=== PATIENT | female | born 1995 | race Caucasian/White ===

== ENCOUNTER 2019-01-05 08:03 | Emergency (ER) | payer SELFPAY ==
[~2019-01-05] VITALS: Ht 154.9 cm; Wt 85.5 kg
[2019-01-05 08:17] VITALS: BP 134/85
[2019-01-05] MEDS ORDERED: SULF1TAB24 PO (08:29)
--- NOTE | 2019-01-05 08:29 | PHYS DOC ---
Adult General Chief Complaint Chief Complaint: SKIN PROBLEM HPI HPI Patient is a 23 year old female who presents with complaining of skin problem of her face. 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 Patient complaining of pressure feeling in left side of her face without fever and chills, change of vision, nausea and vomiting. Review of Systems Review of Systems Constitutional: Denies fever or chills [] Eyes: Denies change in visual acuity, redness, or eye pain [] HENT: Denies nasal congestion or sore throat [] Respiratory: Denies cough or shortness of breath [] Cardiovascular: No additional information not addressed in HPI [] GI: Denies abdominal pain, nausea, vomiting, bloody stools or diarrhea [] : Denies dysuria or hematuria [] Musculoskeletal: Denies back pain or joint pain [] Integument: Denies rash, reports skin lesions [] Neurologic: Denies headache, focal weakness or sensory changes [] Endocrine: Denies polyuria or polydipsia [] All other systems were reviewed and found to be within normal limits, except as documented in this note. Allergies Allergies Allergies Coded Allergies Type Severity Reaction Last Updated Verified Penicillins Allergy Severe Rash 01/05/19 Yes shellfish derived Allergy Severe Rash 01/05/19 Yes Physical Exam Physical Exam Constitutional: Well developed, well nourished, mild distress, non-toxic appearance. [] HENT: Normocephalic, atraumatic. 1x1 cm area of cellulitis in the left cheek without sign of abscess Eyes: PERRLA, EOMI, conjunctiva normal, no discharge. [] Neck: Normal range of motion, no tenderness, supple, no stridor. [] Cardiovascular:Heart rate regular rhythm, no murmur [] Lungs & Thorax: Bilateral breath sounds clear to auscultation [] Psychologic: Affect normal, judgement normal, mood normal. [] EKG EKG [] Radiology/Procedures Radiology/Procedures [] Course & Med Decision Making Course & Med Decision Making Evaluation of patient in ER showed 23-year-old female patient with a facial cellulitis and history of previous MRSA. Plan discharge patient home with prescription of Bactrim and instruction to apply warm compress on her face and follow up with her primary care physician or ER if not getting better. Dragon Disclaimer Dragon Disclaimer This electronic medical record was generated, in whole or in part, using a voice recognition dictation system. Departure Departure Impression: Primary Impression: Facial cellulitis Disposition: HOME, SELF-CARE (at [phone]) Condition: STABLE Referrals: NO PCP (PCP) Patient Instructions: Cellulitis, Community-Associated MRSA Additional Instructions: Put warm towel on your face Follow-up with your primary care physician in 2-3 days Return to ER if not getting better Scripts Sulfamethoxazole/Trimethoprim (BACTRIM DS TABLET) 1 Each Tablet 1 TAB PO BID for infection, #14 TAB Prov: DIA ELMORE MD 01/05/19 DIA ELMORE MD Jan 05, 2019 08:29
== END 2019-01-05 08:44 | disposition home or self-care (01) ==
LOC: ER 08:03
DX: L03.211 Cellulitis of face (principal); Z86.14 Personal history of Methicillin resistant Staphylococcus aureus infection; Z88.0 Allergy status to penicillin; Z91.013 Allergy to seafood
CPT/HCPCS: 99283

== ENCOUNTER 2019-02-09 17:01 | Emergency (ER) | payer SELFPAY ==
[~2019-02-09] VITALS: Ht 157.5 cm; Wt 83.0 kg
[~2019-02-09 17:01] MED LIST: SULF1TAB24 PO
[2019-02-09 17:10] VITALS: BP 160/81
[2019-02-09] MEDS ORDERED: AZIT250T6 PO (17:18)
--- NOTE | 2019-02-09 17:23 | PHYS DOC ---
Past Medical History Past Medical History: Endometriosis, Other Additional Past Medical Histor: PCOS,IBS,RSD (JACKY SHINE APRN) Past Surgical History: Cholecystectomy, Other Additional Past Surgical Histo: RIGHT KNEEX'S2,LEFT SHOULDER, (JACKY SHINE APRN) Alcohol Use: Occasionally Drug Use: None (JACKY SHINE APRN) Attending Signature I have participated in the care of this patient and I have reviewed and agree with all pertinent clinical information above including history, exam, and recommendations. (MATT ADAM MD) Adult General Chief Complaint Chief Complaint: Congestion HPI HPI Patient is a 23 year old female who presents with 1 week of nasal congestion, chest congestion with productive cough of yellow sputum. She states she has been using Mucinex and cold medications [id number]. Patient is a smoker. (JACKY SHINE APRN) Review of Systems Review of Systems HENT: nasal congestion or denies sore throat [] Respiratory: cough or shortness of breath [] All other systems were reviewed and found to be within normal limits, except as documented in this note. (JACKY SHINE APRN) Allergies Allergies Allergies Coded Allergies Type Severity Reaction Last Updated Verified Penicillins Allergy Severe Rash 01/05/19 Yes shellfish derived Allergy Severe Rash 01/05/19 Yes (MATT ADAM MD) Physical Exam Physical Exam Constitutional: Well developed, well nourished, no acute distress, non-toxic appearance. [] HENT: Normocephalic, atraumatic, bilateral external ears normal, oropharynx moist, no oral exudates, nose normal. Frontal and maxillary Sinus tenderness. [] Eyes: PERRLA, EOMI, conjunctiva normal, no discharge. [] Neck: Normal range of motion, no tenderness, supple, no stridor. [] Cardiovascular:Heart rate regular rhythm, no murmur [] Lungs & Thorax: Bilateral breath sounds clear to auscultation [] Skin: Warm, dry, no erythema, no rash. [] Neurologic: Alert and oriented X 3, normal motor function, normal sensory function, no focal deficits noted. [] Psychologic: Affect normal, judgement normal, mood normal. [] (JACKY SHINE APRN) Current Patient Data Vital Signs Vital Signs Date Time Temp Pulse Resp B/P (MAP) Pulse Ox O2 Delivery O2 Flow Rate FiO2 02/09/19 17:10 98.5 86 16 160/81 (107) 98 Room Air 98.5 (MATT ADAM MD) EKG EKG [] (JACKY SHINE APRN) Radiology/Procedures Radiology/Procedures [] (JACKY SHINE APRN) Course & Med Decision Making Course & Med Decision Making Alert and oriented. Speaks in full clear sentences. Skin pink warm and dry. Patient has maxillary and frontal sinus tenderness with palpation. Lungs are clear to auscultation all lobes. Afebrile. Patient denies abdominal pain, nausea, vomiting, dysuria, dizziness, changes, numbness or tingling, diarrhea. Been having a off and on frontal lobe headache. [] (JACKY SHINE APRN) Dragon Disclaimer Dragon Disclaimer This electronic medical record was generated, in whole or in part, using a voice recognition dictation system. (JACKY SHINE APRN) Departure Departure Impression: Primary Impression: Sinusitis Disposition: HOME, SELF-CARE Condition: STABLE Referrals: NO PCP (PCP) Patient Instructions: Sinusitis Additional Instructions: Follow up with a primary care provider. Try to stop smoking as soon as possible. Scripts Azithromycin (AZITHROMYCIN TABLET) 250 Mg Tablet 1 PKG PO UD for 5 Days, #6 TAB 0 Refills 2 the first day followed by 1 for days 2-5 Prov: JACKY SHINE APRN 02/09/19 Problem Qualifiers Primary Impression: Sinusitis Sinusitis location: maxillary Chronicity: acute Recurrence: non- recurrent Qualified Codes: J01.00 - Acute maxillary sinusitis, unspecified JACKY SHINE APRN Feb 09, 2019 17:22 MATT ADAM MD Feb 14, 2019 18:21
== END 2019-02-09 17:45 | disposition home or self-care (01) ==
LOC: ER 17:01
DX: J01.00 Acute maxillary sinusitis, unspecified (principal); F17.200 Nicotine dependence, unspecified, uncomplicated; Z91.013 Allergy to seafood; Z88.0 Allergy status to penicillin
CPT/HCPCS: 99283

== ENCOUNTER 2019-04-20 05:57 | Emergency (ER) | payer OTHER ==
[~2019-04-20] VITALS: Ht 157.5 cm; Wt 83.0 kg
[~2019-04-20 05:57] MED LIST changes: +AZIT250T6 PO
[2019-04-20 06:01] VITALS: BP 173/69
[2019-04-20] MEDS ORDERED: PRED20TA PO (06:13)
[2019-04-20] MEDS ORDERED: AZIT250T PO (06:13)
[2019-04-20] MEDS ORDERED: HYDR-3164 PO (06:16)
--- NOTE | 2019-04-20 06:16 | PHYS DOC ---
Past Medical History Past Medical History: Endometriosis, Other Additional Past Medical Histor: PCOS,IBS,RSD Past Surgical History: Cholecystectomy, Tonsillectomy, Other Additional Past Surgical Histo: RIGHT KNEEX'S2,LEFT SHOULDER, Smoking: Cigarettes Alcohol Use: Occasionally Drug Use: None Adult General Chief Complaint Chief Complaint: EARACHE/EAR PAIN HPI HPI Patient is a 24 year old female with PMH of Endometriosis and PCOS who presents with left ear pain that began after blowing her nose forcefully this morning. She states she's had a runny nose, cough, and sinus congestion for the last four days. She describes her pain as sharp, non-radiating, and brought on by any physical contact with her ear. She also has some hearing loss in the involved ear. She describes feeling dizzy initially, but is not now. She denies any nausea, vomiting, fever, or chills. She has not taken anything for the pain yet. She has been taking Dayquil for her cold with mild relief. Review of Systems Review of Systems Constitutional: Denies fever or chills Eyes: Denies redness or eye pain HENT: Reports nasal congestion. Left ear pain with muffled hearing. Respiratory: Reports dry cough. Denies shortness of breath Cardiovascular: Denies chest pain or palpitations GI: Denies abdominal pain, nausea, or vomiting : Denies dysuria or hematuria Musculoskeletal: Denies back pain or joint pain Integument: Denies rash or skin lesions Neurologic: Reports headache, Denies focal weakness or sensory changes Complete systems were reviewed and found to be within normal limits, except as documented in this note. Current Medications Current Medications Current Medications Medications (Trade) Dose Ordered Sig/Alia Start Time Stop Time Status Last Admin Dose Admin Acetaminophen/ Hydrocodone Bitart (Lortab 5/325) 1 tab 1X ONCE 04/20/19 07:00 04/20/19 07:01 DC 04/20/19 07:09 1 TAB Dexamethasone (Decadron) 10 mg 1X ONCE 04/20/19 06:30 04/20/19 06:31 DC 04/20/19 07:08 10 MG Ketorolac Tromethamine (Toradol 30mg Vial) 30 mg 1X ONCE 04/20/19 06:30 04/20/19 06:31 DC 04/20/19 07:07 30 MG Allergies Allergies Allergies Coded Allergies Type Severity Reaction Last Updated Verified Penicillins Allergy Severe Rash 9/21/19 Yes shellfish derived Allergy Severe Rash 01/05/19 Yes Physical Exam Physical Exam Constitutional: Well developed, well nourished, no acute distress, non-toxic appearance HENT: Normocephalic, atraumatic, oropharynx moist. Left TM has localized erythema. No overt signs of rupture or infection. Eyes: conjunctiva normal, no discharge Cardiovascular: Heart rate normal, regular rhythm Lungs & Thorax: Bilateral breath sounds clear to auscultation, no wheezing Skin: Warm, dry, no erythema, no rash Neurologic: Alert and oriented X 3, normal motor function, normal sensory function, no focal deficits noted Psychologic: Affect normal, judgement normal, mood normal Current Patient Data Vital Signs Vital Signs Date Time Temp Pulse Resp B/P (MAP) Pulse Ox O2 Delivery O2 Flow Rate FiO2 04/20/19 07:09 16 98 04/20/19 06:01 98.2 109 173/69 (103) Room Air 98.2 EKG EKG [] Radiology/Procedures Radiology/Procedures [] Course & Med Decision Making Course & Med Decision Making Patient is a 24-year-old female with past medical history of endometriosis and PCOS who presents with left ear pain after sneezing forcefully this morning. The tympanic membrane does not show any signs of clear rupture or infection at this time. However, there is a small portion of erythema over a small part of the membrane. This potentially indicates a small tear in the membrane. Patient was advised to take tympanic membrane rupture precautions. She was given a shot of Toradol 30 mg IM, 1 dose of 5-325mg Hydrocone, and one dose of dexamethasone 10mg in the emergency department. In addition, she was prescribed hydrocodone to help with continued pain and discomfort. Azithromycin was prescribed with the intention of being used only if symptoms worsen over the next 48 hours. Patient stable for discharge with outpatient follow-up with PCP. Discussed findings and plan with patient, who acknowledges understanding and agreement. Dragon Disclaimer Dragon Disclaimer This electronic medical record was generated, in whole or in part, using a voice recognition dictation system. Departure Departure Impression: Primary Impression: Sinusitis Additional Impression: Otalgia of left ear Disposition: HOME, SELF-CARE Condition: STABLE Referrals: NO PCP (PCP) BERYL MARINO MD Patient Instructions: Eardrum Perforation, [id number], Otalgia-Brief, Sinusitis, [id number] Additional Instructions: Hold antibiotics for 48 hours. If symptoms worsen or for fever > 100.3 F after 48 hours then start antibiotics as prescribed. Scripts Hydrocodone/Apap 5-325 (NORCO 5-325 TABLET) 1 Each Tablet 0.5-1 TAB PO PRN Q6HRS PRN for PAIN, #10 TAB 0 Refills Prov: RENÉ MARTÍNEZ DO 04/20/19 Azithromycin (ZITHROMAX) 250 Mg Tablet 1 PKG PO UD, #6 TAB Take 2 tablets on day 1 and then 1 tablet each day for the next 4 days as directed Prov: RENÉ MARTÍNEZ DO 04/20/19 Prednisone (PREDNISONE) 20 Mg Tablet 2 TAB PO DAILY, #8 TAB Start this prescription tomorrow, Monday04/21/19 Prov: RENÉ MARTÍNEZ DO 04/20/19 Problem Qualifiers Primary Impression: Sinusitis Sinusitis location: unspecified location Chronicity: acute Recurrence: not specified as recurrent Qualified Codes: J01.90 - Acute sinusitis, unspecified RENÉ MARTÍNEZ DO Apr 20, 2019 06:16
[2019-04-20] MEDS: KETOROLAC 30 MG/ML VIAL. IM ONE (07:07)
[2019-04-20] MEDS: DEXAMETHASONE 4 MG TABLET PO ONE (07:08)
[2019-04-20] MEDS: HYDROcodone/APAP 5/325MG 1 TAB TABLET PO ONE (07:09)
== END 2019-04-20 07:12 | disposition home or self-care (01) ==
LOC: ER 05:57
DX: J01.90 Acute sinusitis, unspecified (principal); H92.02 Otalgia, left ear; K58.9 Irritable bowel syndrome, unspecified; E28.2 Polycystic ovarian syndrome; F17.210 Nicotine dependence, cigarettes, uncomplicated; Z91.041 Radiographic dye allergy status; Z88.0 Allergy status to penicillin; Z91.013 Allergy to seafood
CPT/HCPCS: 96372; 99283; J1885; J8540; 99284

== ENCOUNTER 2019-06-18 18:51 | Emergency (ER) | payer OTHER ==
[~2019-06-18] VITALS: Ht 154.9 cm; Wt 78.0 kg
[~2019-06-18 18:51] MED LIST changes: +AZIT250T PO; +HYDR-3164 PO; +PRED20TA PO
[2019-06-18 19:35] VITALS: BP 136/100
[2019-06-18] MEDS: ACETAMINOPHEN 325 MG TABLET. PO ONE (19:59)
[2019-06-18] MEDS: BENZONATATE 100 MG CAPSULE. PO ONE (19:59)
--- NOTE | 2019-06-18 20:02 | PHYS DOC ---
Past Medical History Past Medical History: Endometriosis, Other Additional Past Medical Histor: PCOS,IBS,RSD (GUSTAVO LÓPEZ) Past Surgical History: Cholecystectomy, Tonsillectomy, Other Additional Past Surgical Histo: RIGHT KNEE, LEFT SHOULDER,adenoidectomy,tongue "clipped" (GUSTAVO LÓPEZ) Smoking Status: Current Every Day Smoker Additional Information: 1/2 ppd Alcohol Use: Occasionally Drug Use: None (GUSTAVO LÓPEZ) Attending Signature I have participated in the care of this patient and I have reviewed and agree with all pertinent clinical information above including history, exam, and recommendations. (MATT ADAM MD) Adult General Chief Complaint Chief Complaint: FLU SYMPTOM HPI HPI Patient is a 24 year old F who is here with 24 hours of cough, congestion and body aches. She has been exposed to her friend and coworkers who have tested positive for Influenza A. She has a history of exercise induced asthma. She took Ibuprofen last early this morning. (GUSTAVO LÓPEZ) Review of Systems Review of Systems Constitutional: Reports chills and fever. HENT: Reports nasal congestion, sore throat and L ear pain. Respiratory: Reports cough. Denies shortness of breath Cardiovascular: Denies chest pain. GI: Denies abdominal pain, nausea, vomiting, bloody stools or diarrhea : Denies dysuria or hematuria Musculoskeletal: Denies back pain. Reports body aches. Integument: Denies rash or skin lesions Neurologic: Denies headache, focal weakness or sensory changes All other systems were reviewed and found to be within normal limits, except as documented in this note. (GUSTAVO LÓPEZ) Current Medications Current Medications Current Medications Medications (Trade) Dose Ordered Sig/Alia Start Time Stop Time Status Last Admin Dose Admin Acetaminophen (Tylenol) 650 mg 1X ONCE 06/18/19 20:00 06/18/19 20:01 DC 06/18/19 19:59 650 MG Albuterol/ Ipratropium (Duoneb) 3 ml 1X ONCE 06/18/19 20:00 06/18/19 20:01 DC 06/18/19 20:05 3 ML Benzonatate (Tessalon Perle) 100 mg 1X ONCE 06/18/19 20:00 06/18/19 20:01 DC 06/18/19 19:59 100 MG Ondansetron HCl (Zofran Odt) 4 mg 1X ONCE 06/18/19 20:15 06/18/19 20:16 DC 06/18/19 20:15 4 MG (MATT ADAM MD) Allergies Allergies Allergies Coded Allergies Type Severity Reaction Last Updated Verified Penicillins Allergy Severe throat swelling 06/18/19 Yes shellfish derived Allergy Severe hives 06/18/19 Yes (MATT ADAM MD) Physical Exam Physical Exam Constitutional: Well developed, well nourished, no acute distress, non-toxic appearance. HENT: Normocephalic, atraumatic, oropharynx erythema, no oral exudates, nose normal. L ear dull, mild erythema. Neck: Normal range of motion, no tenderness, supple, no stridor. Cardiovascular:Heart rate regular rhythm, no murmur Lungs & Thorax: Bilateral breath sounds clear to auscultation. Hard cough noted. Abdomen: Bowel sounds normal, soft, no tenderness, no masses, no pulsatile masses. Skin: Warm, dry, no erythema, no rash. Back: No tenderness, no CVA tenderness. Extremities: No tenderness, no cyanosis, no clubbing, ROM intact, no edema. Neurologic: Alert and oriented X 3, normal motor function, normal sensory func tion, no focal deficits noted. Psychologic: Affect normal, judgement normal, mood normal. (GUSTAVO LÓPEZ) Current Patient Data Vital Signs Vital Signs Date Time Temp Pulse Resp B/P (MAP) Pulse Ox O2 Delivery O2 Flow Rate FiO2 06/18/19 20:06 98 Room Air 06/18/19 19:35 98.1 100 16 136/100 (112) 98.1 (MATT ADAM MD) Lab Values Laboratory Tests Test 06/18/19 19:40 Influenza Type A Antigen Negative (NEGATIVE) Influenza Type B Antigen Negative (NEGATIVE) (MATT ADAM MD) Lab Values Laboratory Tests Test 06/18/19 19:40 Influenza Type A Antigen Negative (NEGATIVE) Influenza Type B Antigen Negative (NEGATIVE) (GUSTAVO LÓPEZ) EKG EKG [] (GUSTAVO LÓPEZ) Radiology/Procedures Radiology/Procedures CXR: neg (GUSTAVO LÓPEZ) Course & Med Decision Making Course & Med Decision Making Pt's flu swabs are negative but still suspect influenza with known exposure and classic flu like symptoms. She is within the 72 hour window and discussed risk/benefits of Tamiflu and will prescribe and give her the option. Discussed rest and fever control. Will cover with Proair and cough syrup to help with hard cough. Pt to return with any worsening symptoms. (GUSTAVO LÓPEZ) Dragon Disclaimer Dragon Disclaimer This electronic medical record was generated, in whole or in part, using a voice recognition dictation system. (GUSTAVO LÓPEZ) Departure Departure Impression: Primary Impression: Bronchitis Additional Impression: Flu-like symptoms Disposition: HOME, SELF-CARE Condition: IMPROVED Referrals: NO PCP (PCP) Patient Instructions: Acute Bronchitis, Bila-[id number]-Utbr, Viral Syndrome Additional Instructions: Rest, push fluids, alternate tylenol and ibuprofen for fever control. Follow up with PCP or return to ER if symptoms worsen. Scripts Guaifenesin/Codeine Phosphate (Codeine-Guaifen 10-100 mg/5 ml) 120 Ml Liquid 10 ML PO PRN Q4HRS PRN for cough and congestion MDD 60 Milliliter(s) for 4 Days, #240 ML 0 Refills Prov: GUSTAVO LÓPEZ 06/18/19 Albuterol Sulfate (PROAIR HFA INHALER) 8.5 Gm Hfa.aer.ad 2 PUFF IH PRN Q4-6HRS PRN for wheezing for 21 Days, #1 INHALER 0 Refills Prov: GUSTAVO LÓPEZ 06/18/19 Oseltamivir Phosphate (TAMIFLU) 75 Mg Capsule 1 CAP PO BID, #10 CAP Prov: GUSTAVO LÓPEZ 06/18/19 Problem Qualifiers GUSTAVO LÓPEZ Jun 18, 2019 20:02 MATT ADAM MD Jun 18, 2019 22:07
[2019-06-18] MEDS: IPRATRPIUM/ALBUTEROL 0.5/2.5MG 3 ML NEBU. NEB ONE (20:05)
[2019-06-18] MEDS: ONDANSETRON ODT 4 MG TAB.RAPDIS. PO ONE (20:15)
[2019-06-18 20:39] LABS: INFLUENZA A PATIENT NEGATIVE (NEGATIVE); INFLUENZA B PATIENT NEGATIVE (NEGATIVE)
--- NOTE | 2019-06-18 20:59 | RAD ---
CHEST PA LATERAL Technique: PA and lateral views of the chest were obtained. Clinical History: Comparison: None. Findings: The heart and pulmonary vasculature appear within normal limits. The lungs are clear. The pleural margins are clear. Impression: No acute chest process is seen. Electronically signed by: Sebas Duffy III, MD (06/18/2019 8:56 PM) [id number]
[2019-06-18] MEDS ORDERED: ALBU2.5V8 IH (21:06)
[2019-06-18] MEDS ORDERED: GUAI120L35 PO (21:06)
[2019-06-18] MEDS ORDERED: OSEL75CA PO (21:06)
== END 2019-06-18 21:05 | disposition home or self-care (01) ==
LOC: ER 18:51
DX: J40 Bronchitis, not specified as acute or chronic (principal); R05 Cough; R09.81 Nasal congestion; M79.10 Myalgia, unspecified site; H92.02 Otalgia, left ear; K58.9 Irritable bowel syndrome, unspecified; F17.200 Nicotine dependence, unspecified, uncomplicated; Z88.0 Allergy status to penicillin; Z91.013 Allergy to seafood
CPT/HCPCS: 71046; 87804; 94640; 99284-25; Q0162

== ENCOUNTER 2020-08-21 14:44 | Emergency (ER) | payer OTHER ==
[~2020-08-21] VITALS: Ht 154.9 cm; Wt 75.0 kg
[~2020-08-21 14:44] MED LIST changes: +ALBU2.5V8 IH; +GUAI120L35 PO; +OSEL75CA PO
[2020-08-21 15:30] VITALS: BP 125/75
--- NOTE | 2020-08-21 16:27 | RAD ---
XR FOOT_LEFT 3 VIEWS 08/21/2020 4:19 PM INDICATION: History of prior surgery with sensation of screw coming out COMPARISON: None available. TECHNIQUE: 3 views of the left foot are provided. FINDINGS/ IMPRESSION: 1. Partially threaded screw identified within the navicular bone medially. No component identified wi thin the subcutaneous soft tissues. There may be mild medial soft tissue swelling. No acute fracture or dislocation. Bone mineralization is within normal limits. Joint spaces are maintained. Electronically signed by: Izabel Hernandez MD (08/21/2020 4:25 PM) [id number]
--- NOTE | 2020-08-21 16:47 | ED.ADGEN ---
Past Medical History Past Medical History: No Pertinent History Additional Past Medical Histor: PCOS,IBS,RSD Past Surgical History: Cholecystectomy, Tonsillectomy Additional Past Surgical Histo: L-FOOT, ADNOIDS, WISDOM TEETH, BOTH KNEES ORTHOSCOPY, L-SHOULDER, PCOS GABRIELA Smoking Status: Current Every Day Smoker Alcohol Use: Rarely Drug Use: None General Adult EDM: Chief Complaint: LOWER EXT PAIN HPI: HPI: Patient is a 25 year old urgency department with concerns of a screw coming out of her left foot of her previous navicular surgery site. Patient denies any new injury or trauma to the foot. She states that she felt a bump on her foot that feels like a screw 2 days ago and it has continued to bother her. She denies any bleeding or drainage from her foot. Patient currently rates her pain a 7 out of 10 on pain scale and describes it as aching sensation, she denies any alleviating factors, the pain increases with palpation and movement. Review of Systems: Review of Systems: Complete ROS is negative unless otherwise noted in HPI. Allergies: Allergies: Allergies Coded Allergies Type Severity Reaction Last Updated Verified Penicillins Allergy Severe throat swelling 06/18/19 Yes shellfish derived Allergy Severe hives 06/18/19 Yes Physical Exam: PE: See Above Constitutional: Well developed, well nourished, no acute distress, non-toxic appearance. [] HENT: Normocephalic, atraumatic, bilateral external ears normal, nose normal. [] Eyes: PERRLA, EOMI, conjunctiva normal, no discharge. [] Neck: Normal range of motion, no stridor. [] Cardiovascular:Heart rate regular rhythm Lungs & Thorax: Respirations even and unlabored, no retractions, no respiratory distress Skin: Warm, dry, no erythema, no rash. [] Extremities: Left foot: Medial tenderness to palpation over the navicular region, no bruising, no crepitus, no tenting of the skin, palpable knot in the area of tenderness, 2+ pedal pulse, no cyanosis, ROM intact, no edema. [] Neurologic: Alert and oriented X 3, no focal deficits noted. [] Psychologic: Affect normal, judgement normal, mood normal. [] Current Patient Data: Vital Signs: Vital Signs Date Time Temp Pulse Resp B/P (MAP) Pulse Ox O2 Delivery O2 Flow Rate FiO2 08/21/20 15:30 98.6 94 16 125/75 (92) 98 Room Air 98.6 EKG: EKG: [] Heart Score: C/O Chest Pain: No Risk Scores: Score 0 - 3: 2.5% MACE over next 6 weeks - Discharge Home Score 4 - 6: 20.3% MACE over next 6 weeks - Admit for Clinical Observation Score 7 - 10: 72.7% MACE over next 6 weeks - Early Invasive Strategies Radiology/Procedures: Radiology/Procedures: PROCEDURE: FOOT LEFT 3V XR FOOT_LEFT 3 VIEWS 08/21/2020 4:19 PM INDICATION: History of prior surgery with sensation of screw coming out COMPARISON: None available. TECHNIQUE: 3 views of the left foot are provided. FINDINGS/ IMPRESSION: 1. Partially threaded screw identified within the navicular bone medially. No component identified within the subcutaneous soft tissues. There may be mild medial soft tissue swelling. No acute fracture or dislocation. Bone mineralization is within normal limits. Joint spaces are maintained. Electronically signed by: Izabel Hernandez MD (08/21/2020 4:25 PM) [id number] Course & Med Decision Making: Course & Med Decision Making Pertinent Labs and Imaging studies reviewed. (See chart for details) 1435- I spoke with Dr. Ospina about the patient in the ER and concerns of surgical hardware coming out. Per Dr. Ospina pt needs to f/u with her surgeon, may take Tylenol or Ibuprofen as needed for pain. [] Dragon Disclaimer: Dragon Disclaimer: This electronic medical record was generated, in whole or in part, using a voice recognition dictation system. Departure Departure Impression: Primary Impression: Left foot pain Disposition: 01 HOME / SELF CARE / HOMELESS Condition: STABLE Referrals: NO PCP (PCP) Patient Instructions: Medical Screening Exam Additional Instructions: Follow up with your foot surgeon for further evaluation and treatment. You may take Tylenol or Ibuprofen as needed for pain. Return to the ER if symptoms worsen. LORI CONNOR [employer] August 21, 2020 16:47
== END 2020-08-21 17:00 | disposition home or self-care (01) ==
LOC: ER 14:44
DX: M79.672 Pain in left foot (principal); F17.200 Nicotine dependence, unspecified, uncomplicated; Z88.0 Allergy status to penicillin; Z91.013 Allergy to seafood
CPT/HCPCS: 73630; 99283

== ENCOUNTER 2021-07-07 14:04 | Emergency (ER) | payer OTHER ==
[~2021-07-07] VITALS: Ht 154.9 cm; Wt 65.0 kg
[2021-07-07] MEDS ORDERED: ONDANSETRON PF 4 MG/2 ML VIAL. IVP ONE (15:30)
[2021-07-07] MEDS ORDERED: IV NORMAL SALINE 1000ML BAG 1,000 ML IV ONE (15:30)
--- NOTE | 2021-07-07 15:38 | PHYS DOC ---
Past Medical History Past Medical History: No Pertinent History Additional Past Medical Histor: PCOS,IBS,RSD Past Surgical History: Cholecystectomy, Tonsillectomy Additional Past Surgical Histo: L-FOOT, ADNOIDS, WISDOM TEETH, BOTH KNEES ORTHOSCOPY, L-SHOULDER, PCOS GABRIELA Smoking Status: Current Every Day Smoker Alcohol Use: Rarely Drug Use: None General Adult EDM: Chief Complaint: MULTIPLE COMPLAINTS HPI: HPI: Patient is a 26-year-old female presents to emergency department complaining of nausea vomiting diarrhea since Monday at 2 AM. Patient reports she does not think she ate spoiled or bad food as her roommate that ate the same food at nigh t did not have the same symptoms, currently denies any thoughts of vomiting today, reports she did have 4 small loose brown bowel movements that she describes as diarrhea, denies seeing blood in her vomitus or her stool. Patient denies increased thirst or increased urination, denies urinary pressure urinary burning, hematuria or other dysuria, denies rashes to her vagina, denies vaginal discharge or STI concerns. Reports she is currently on her menstrual cycle. Patient denies taking medications at home, states she sees primary care through telemedicine who recommended she come to the emergency department for dehydration. Patient is asking for a work excuse. Patient denies other physical complaints or physical concerns. Review of Systems: Review of Systems: 14 body systems of review of systems have been reviewed. See HPI for pertinent positives and negative responses, otherwise all other systems are negative, nonpertinent or noncontributory. Constitutional: Negative except as outlined in HPI above. Skin: Negative except as outlined in HPI above. Eyes: Negative except as outlined in HPI above. HENT: Negative except as outlined in HPI above. Respiratory: Negative except as outlined in HPI above. Cardiovascular: Negative except as outlined in HPI above. GI: Negative except as outlined in HPI above. : Negative except as outlined in HPI above. Musculoskeletal: Negative except as outlined in HPI above. Integument: Negative except as outlined in HPI above. Neurologic: Negative except as outlined in HPI above. Endocrine: Negative except as outlined in HPI above. Lymphatic: Negative except as outlined in HPI above. Psychiatric: Negative except as outlined in HPI above. Heart Score: C/O Chest Pain: No Risk Factors: Risk Factors: DM, Current or recent (<one month) smoker, HTN, HLP, family history of CAD, obesity. Risk Scores: Score 0 - 3: 2.5% MACE over next 6 weeks - Discharge Home Score 4 - 6: 20.3% MACE over next 6 weeks - Admit for Clinical Observation Score 7 - 10: 72.7% MACE over next 6 weeks - Early Invasive Strategies Allergies: Allergies: Allergies Coded Allergies Type Severity Reaction Last Updated Verified Penicillins Allergy Severe throat swelling 06/18/19 Yes shellfish derived Allergy Severe hives 06/18/19 Yes Physical Exam: PE: Constitutional: Well developed, well nourished, no acute distress, non-toxic appearance. 26-year-old female in no apparent distress. HENT: Normocephalic, atraumatic. Eyes: Conjunctiva normal, no discharge. Neck: Normal range of motion, no stridor. Cardiovascular: No cyanosis appreciated, distal cap refill less than 2 seconds. Lungs & Thorax: Patient is in no respiratory distress, no audible adventitious lung sounds appreciated. Abdomen: Nontender, no abnormalities noted. Skin: Warm, dry, no erythema, no rash. Back: No tenderness, no deformities. Extremities: No tenderness, no cyanosis, no clubbing, ROM intact, no edema. Neurologic: Alert and oriented X 3, normal motor function, normal sensory function, no focal deficits noted. Psychologic: Affect normal, judgement normal, mood normal. Current Patient Data: Labs: Laboratory Tests Test 07/07/21 14:44 POC Urine HCG, Qualitative Hcg negative (Negative) Vital Signs: Vital Signs Date Time Temp Pulse Resp B/P (MAP) Pulse Ox O2 Delivery O2 Flow Rate FiO2 07/07/21 14:38 98.4 78 16 149/96 (113) 98 98.4 EKG: EKG: [] Radiology/Procedures: Radiology/Procedures: [] Course & Med Decision Making: Course & Med Decision Making Pertinent Labs and Imaging studies reviewed. (See chart for details) 26-year-old female, vital signs reviewed, presents emergency department concerning nausea vomiting diarrhea for the past 3 days. Patient's physical examination is unremarkable, the patient's oral mucosa was moist. Will order urinalysis assay, urine test, 1 L normal saline, 4 mg Zofran, 30 mg Toradol, CBC, CMP, lipase. Will reevaluate after period of time. After period of time, patient reports she feels much better now, labs are unremarkable except for potassium slightly low at 3.3, will give potassium supplement prior to discharge. Discussed findings with patient, strict follow- up with primary care soon, return to ER precautions and concerns were reviewed, patient gave verbal understanding of and is amenable to ED discharge planning. Discussed with the patient all findings and diagnostic testing as well as the need to follow-up with their primary care provider for further evaluation and treatment or return to the ED if any new or worsening symptoms. Strict return precautions were also discussed at length, the patient voiced understanding and agreement with the discharge planning. The patient was nontoxic in appearance, in no apparent distress, and hemodynamically stable at the time of disposition. Dragon Disclaimer: Scentbird Disclaimer: This electronic medical record was generated, in whole or in part, using a voice recognition dictation system. Departure Departure Impression: Primary Impression: Nausea vomiting and diarrhea Disposition: HOME / SELF CARE / HOMELESS Condition: GOOD Referrals: UNKNOWN PCP NAME (PCP) Patient Instructions: Diarrhea, Nausea and Vomiting Additional Instructions: You were seen today in the emergency department for nausea vomiting diarrhea since Monday. Your symptoms seem to have been resolving prior to arrival to the ER today as you had not experienced any vomiting today. You were given IV normal saline along with a nausea and pain medication in the IV. This seemed to help per your statement, your labs did not show any concerning findings other than a decreased potassium level which can be typical after experiencing bouts of nausea and diarrhea. You were given a potassium supplement today in the emergency department, you can keep your potassium levels within normal limits by eating potassium rich foods and a well-balanced diet. Please choose a primary care physician to follow-up with, I have attached a list to this document. Thank you for visiting our Emergency Department. It was a pleasure taking care of you today in the emergency department and we appreciate you trusting us with your care. If any additional problems come up don't hesitate to return to visit us. Please follow up with your primary care provider so they can plan additional care if needed and know about the problem that you had. If symptoms worsen come back to the Emergency Department. Any concerning symptoms that start such as chest pain, shortness of air, weakness or numbness on one side of the body, running high fevers or any other concerning symptoms return to the ER. [facility] [address] [place] [address] [facility] [address] [place] [address] [facility] [address] [place] [address] [facility] [address] [place] [address] [facility] [address] [place] [address] [facility] [address] [place] [address] [facility] [address] [place] [address] [facility] [address] [place] [address] [facility] [address] [place] [address] [facility] [address] [place] [address] RENÉ EDWARDS APRN Jul 07, 2021 15:38
[2021-07-07 15:44] LABS: BASO % 1 % (0-3); EOS # 0.2 x10^3/uL (0.0-0.7); EOS % 3 % (0-3); HEMATOCRIT 43.7 % (36.0-47.0); HEMOGLOBIN 15.1 g/dL (12.0-15.5); LYMPH # 1.9 x10^3/uL (1.0-4.8); LYMPH % 35 % (24-48); MEAN CORPUSCULAR HEMOGLOBIN 29 pg (25-35); MEAN CORPUSCULAR HGB CONC 35 g/dL (31-37); MEAN CORPUSCULAR VOLUME 84 fL (79-100); MONO # 0.3 x10^3/uL (0.0-1.1); MONO % 6 % (0-9); NEUT % 55 % (31-73); PLATELET COUNT 213 x10^3/uL (140-400); RED CELL DISTRIBUTION WIDTH 12.7 % (11.5-14.5); WHITE BLOOD COUNT 5.5 x10^3/uL (4.0-11.0)
[2021-07-07] MEDS ORDERED: KETOROLAC 30 MG/ML VIAL. IVP ONE (15:45)
[2021-07-07 15:57] LABS: INFLUENZA A PATIENT NEGATIVE (NEGATIVE); INFLUENZA B PATIENT NEGATIVE (NEGATIVE)
[2021-07-07 16:00] LABS: CALCIUM 9.1 mg/dL (8.5-10.1); CREATININE 0.7 mg/dL (0.6-1.0); GFR 100.4; POTASSIUM 3.3 mmol/L (3.5-5.1)
[2021-07-07 16:05] LABS: BACTERIA,URINE 0 /HPF (0-FEW); RBC,URINE OCC /HPF (0-2)
[2021-07-07 16:11] LABS: ALBUMIN 4.2 g/dL (3.4-5.0); ALBUMIN/GLOBULIN RATIO 1.4 (1.0-1.7); TOTAL BILIRUBIN 0.3 mg/dL (0.2-1.0); TOTAL PROTEIN 7.3 g/dL (6.4-8.2)
[2021-07-07 16:54] VITALS: BP 134/98
[2021-07-07] MEDS ORDERED: POTASSIUM CHLORIDE 20 MEQ TABLET.ER. PO ONE (17:00)
== END 2021-07-07 17:23 | disposition home or self-care (01) ==
LOC: ER 14:04
DX: R11.2 Nausea with vomiting, unspecified (principal); R19.7 Diarrhea, unspecified; F17.200 Nicotine dependence, unspecified, uncomplicated; Z20.822 Contact with and (suspected) exposure to COVID-19; Z90.49 Acquired absence of other specified parts of digestive tract; Z88.0 Allergy status to penicillin; Z91.013 Allergy to seafood
CPT/HCPCS: 36415; 80053; 81001; 81025; 83690; 85025; 87428; 96361; 96374; 96375; 99284; J1885; J2405; J7030